=== PATIENT | male | born 1975 | race Caucasian/White ===

== ENCOUNTER 2017-09-16 01:04 | Inpatient (IN) | payer MEDICAID ==
[2017-09-16] VITALS (10 sets, daily range): BP systolic 99–134; BP diastolic 58–77; PULSE 55–75; RESP 16–20; TEMP 95.9–98; O2SAT 95–100
[~2017-09-16] VITALS: Ht 175.3 cm; Wt 85.9 kg
[2017-09-16] MEDS ORDERED: SODIUM CHLOR 0.9% 1000 ML INJ 1,000 ML IV SCH (03:46)
--- NOTE | 2017-09-16 03:50 | PD ---
HPI Chief Complaint: Abdominal Pain Time Seen by Provider: 03:42 Travel History International Travel<30 days: No Contact w/Intl Traveler<30days: No Traveled to known affect area: No History of Present Illness HPI 41-year-old male here for evaluation of abdominal pain. Patient reports that he was at [facility] earlier today and had a CT of his abdomen that showed an abscess. She reports abdominal pain for the last week described as sharp as well as multiple episodes of loose/nonbloody diarrhea. He denies fevers or chills. He feels nauseous but has not vomited. No rectal pain. No urinary symptoms. Drinks alcohol daily. Denies trauma. Denies IVDU. PFS Past Medical History Medical History: Denies Significant Hx Diminished Hearing: No Tetanus Vaccination: Unknown Influenza Vaccination: No Past Surgical History Surgical History: No Previous Surgery Social History Alcohol Use: No Tobacco Use: Yes (2PPD) Substance Use: No Allergies-Medications (Allergen,Severity, Reaction): Coded Allergies: No Known Allergies (Unverified , 09/16/17) Reported Meds & Prescriptions Reported Meds & Active Scripts Active No Active Prescriptions or Reported Medications Review of Systems Except as stated in HPI: all other systems reviewed are Neg Physical Exam Narrative GENERAL: Well-developed, well-nourished, comfortable, no apparent distress. SKIN: Focused skin assessment warm/dry. No rash. HEAD: Atraumatic. Normocephalic. EYES: Pupils equal and round. No scleral icterus. No injection or drainage. ENT: Mucous membranes pink and moist. NECK: Trachea midline. No JVD. CARDIOVASCULAR: Regular rate and rhythm. No murmur appreciated. RESPIRATORY: No accessory muscle use. Clear to auscultation. Breath sounds equal bilaterally. GASTROINTESTINAL: Abdomen soft, nondistended. Mild diffuse tenderness without peritoneal signs. Normal bowel sounds. No hernias. MUSCULOSKELETAL: No obvious deformities. No clubbing. No cyanosis. No edema. NEUROLOGICAL: Awake and alert. No obvious cranial nerve deficits. Motor grossly within normal limits. Normal speech. PSYCHIATRIC: Appropriate mood and affect; insight and judgment normal. Data Data Last Documented VS Vital Signs Date Time Temp Pulse Resp B/P (MAP) Pulse Ox O2 Delivery O2 Flow Rate FiO2 09/16/17 06:11 60 16 109/73 (85) 98 Room Air 09/16/17 01:06 98.0 Orders Orders Complete Blood Count With Diff (09/16/17 03:46) Comprehensive Metabolic Panel (09/16/17 03:46) Lipase (09/16/17 03:46) Prothrombin Time / Inr (Pt) (09/16/17 03:46) Act Partial Throm Time (Ptt) (09/16/17 03:46) Ct Abd/Pel W Iv Contrast(Rout) (09/16/17 03:46) Iv Access Insert/Monitor (09/16/17 03:46) Ecg Monitoring (09/16/17 03:46) Oximetry (09/16/17 03:46) Morphine Inj (Morphine Inj) (09/16/17 04:00) Ondansetron Inj (Zofran Inj) (09/16/17 04:00) Sodium Chlor 0.9% 1000 Ml Inj (Ns 1000 M (09/16/17 03:46) Sodium Chloride 0.9% Flush (Ns Flush) (09/16/17 04:00) Iohexol 350 Inj (Omnipaque 350 Inj) (09/16/17 06:31) Ciprofloxacin 400 Mg Premix (Cipro 400 M (09/16/17 07:00) Metronidazole 500 Mg Inj (Flagyl 500 Mg (09/16/17 07:00) Labs Laboratory Tests Test 09/16/17 04:10 White Blood Count 14.6 TH/MM3 Red Blood Count 4.94 MIL/MM3 Hemoglobin 15.6 GM/DL Hematocrit 46.2 % Mean Corpuscular Volume 93.5 FL Mean Corpuscular Hemoglobin 31.6 PG Mean Corpuscular Hemoglobin Concent 33.8 % Red Cell Distribution Width 13.8 % Platelet Count 257 TH/MM3 Mean Platelet Volume 6.9 FL Neutrophils (%) (Auto) 70.3 % Lymphocytes (%) (Auto) 18.5 % Monocytes (%) (Auto) 6.7 % Eosinophils (%) (Auto) 3.7 % Basophils (%) (Auto) 0.8 % Neutrophils # (Auto) 10.3 TH/MM3 Lymphocytes # (Auto) 2.7 TH/MM3 Monocytes # (Auto) 1.0 TH/MM3 Eosinophils # (Auto) 0.5 TH/MM3 Basophils # (Auto) 0.1 TH/MM3 CBC Comment DIFF FINAL Differential Comment Prothrombin Time 10.1 SEC Prothromb Time International Ratio 1.0 RATIO Activated Partial Thromboplast Time 29.2 SEC Blood Urea Nitrogen 9 MG/DL Creatinine 0.95 MG/DL Random Glucose 87 MG/DL Total Protein 7.8 GM/DL Albumin 3.5 GM/DL Calcium Level 8.8 MG/DL Alkaline Phosphatase 80 U/L Aspartate Amino Transf (AST/SGOT) 19 U/L Alanine Aminotransferase (ALT/SGPT) 25 U/L Total Bilirubin 0.3 MG/DL Sodium Level 140 MEQ/L Potassium Level 3.5 MEQ/L Chloride Level 104 MEQ/L Carbon Dioxide Level 29.9 MEQ/L Anion Gap 6 MEQ/L Estimat Glomerular Filtration Rate 87 ML/MIN Lipase 97 U/L [facility] Medical Decision Making Medical Screen Exam Complete: Yes Emergency Medical Condition: Yes Differential Diagnosis Diverticulitis, diverticular abscess, appendicitis, Narrative Course Initial vital signs show heart rate 75, blood pressure 1:30/77, pulse ox 97% on room air, oral temp of 98F. CBC: WBC 14.6, hemoglobin 15.6, hematocrit 46.2, platelets 257, neutrophils 70%. CMP is unremarkable. CT abdomen pelvis: CONCLUSION: Findings characteristic of acute diverticulitis involving the sigmoid colon. There is wall thickening and inflammatory change as well as a small low density fluid collection. There are several tiny gas bubbles in this region this may represent early abscess formation. Patient will be started on IV Cipro and Flagyl be admitted for further treatment and evaluation. He was made aware of all findings. He is amenable to this plan. Case discussed with hospitalist Dr. Munoz who will admit the patient to the hospitalist service. Diagnosis Primary Impression: Sigmoid diverticulitis Admitting Information Admitting Physician Requests: Admit Scripts No Active Prescriptions or Reported Meds Tay Sosa MD Sep 16, 2017 03:50
[2017-09-16] MEDS ORDERED: SODIUM CHLORIDE 0.9% FLUSH 10 ML FLUSH IV FLUSH PRN (04:00)
[2017-09-16] MEDS ORDERED: ONDANSETRON HCL 4 MG/2 ML VIAL IVP ONE (04:00)
[2017-09-16] MEDS ORDERED: MORPHINE SULFATE 4 MG/ML INJ IV PUSH ONE (04:00)
[2017-09-16 04:40] LABS: AUTOMATED NEUTROPHIL # 10.3 TH/MM3 (1.8-7.7); BASOPHIL # 0.1 TH/MM3 (0-0.2); BASOPHIL % 0.8 % (0.0-2.0); EOSINOPHIL # 0.5 TH/MM3 (0-0.4); EOSINOPHIL % 3.7 % (0.0-4.0); HEMATOCRIT 46.2 % (39.0-51.0); HEMO FLAGS DIFF FINAL; LYMPH % 18.5 % (9.0-44.0); LYMPHOCYTE # 2.7 TH/MM3 (1.0-4.8); MEAN CELL VOLUME 93.5 FL (80.0-100.0); MEAN CORPUSCULAR HEMOGLOBIN 31.6 PG (27.0-34.0); MEAN CORPUSCULAR HGB CONC 33.8 % (32.0-36.0); MONO % 6.7 % (0.0-8.0); NEUT % 70.3 % (16.0-70.0); PLATELET COUNT 257 TH/MM3 (150-450); RED BLOOD COUNT 4.94 MIL/MM3 (4.50-5.90); RED CELL DISTRIBUTION WIDTH 13.8 % (11.6-17.2); WHITE BLOOD COUNT 14.6 TH/MM3 (4.0-11.0)
[2017-09-16 04:52] LABS: APTT (PATIENT) 29.2 SEC (24.3-30.1); PROTHROMBIN TIME - PATIENT 10.1 SEC (9.8-11.6)
[2017-09-16 04:58] LABS: ALT (GPT) 25 U/L (12-78); ANION GAP 6 MEQ/L (5-15); AST (GOT) 19 U/L (15-37); BICARBONATE 29.9 MEQ/L (21.0-32.0); BLOOD UREA NITROGEN 9 MG/DL (7-18); CHLORIDE 104 MEQ/L (98-107); GLOMERULAR FILTRATION RATE 87 ML/MIN (>89); POTASSIUM 3.5 MEQ/L (3.5-5.1); SODIUM (NA) 140 MEQ/L (136-145)
[2017-09-16 05:00] LABS: ALKALINE PHOSPHATASE 80 U/L (45-117); TOTAL BILIRUBIN ADULT 0.3 MG/DL (0.2-1.0)
[2017-09-16] MEDS ORDERED: IOHEXOL 350 MG/ML 10 ML VIAL (for RAD DIAG) IVCONTRAST ONE (06:31)
--- NOTE | 2017-09-16 06:49 | RADRPT ---
EXAM DATE/TIME: 09/16/2017 05:58 [place] COMPARISON: No previous studies available for comparison. INDICATIONS : Abdomen pain. IV CONTRAST: 100 cc Omnipaque 350 (iohexol) IV ORAL CONTRAST: No oral contrast ingested. RADIATION DOSE: 10.14 CTDIvol (mGy) MEDICAL HISTORY : None SURGICAL HISTORY : None. ENCOUNTER: Initial ACUITY: 1 day PAIN SCALE: 5/10 LOCATION: Bilateral abdomen. TECHNIQUE: Volumetric scanning of the abdomen and pelvis was performed. Using automated exposure control and ad justment of the mA and/or kV according to patient size, radiation dose was kept as low as reasonably achievable to obtain optimal diagnostic quality images. DICOM format image data is available electro nically for review and comparison. FINDINGS: LOWER LUNGS: The visualized lower lungs are clear. LIVER: Homogeneous density without lesion. There is no dilation of the biliary tree. No calcified gallston es. There is mild fatty infiltration of the liver. SPLEEN: Normal size without lesion. PANCREAS: Within normal limits. KIDNEYS: Normal in size and shape. There is no mass, stone or hydronephrosis. ADRENAL GLANDS: Within normal limits. VASCULAR: There is no aortic aneurysm. BOWEL/MESENTERY: Does sigmoid colon is abnormal with inflammatory change and wall thickening. There is an ill-defined low attenuation fluid collection measuring up to 1.9 x 1.7 cm. This is best seen on axial image #50 a nd contains several small gas bubbles.. There are scattered diverticuli. There is no free air. The jed wel gas pattern is nonobstructive. ABDOMINAL WALL: Within normal limits. RETROPERITONEUM: There is no lymphadenopathy. BLADDER: No wall thickening or mass. REPRODUCTIVE: Within normal limits. INGUINAL: There is no lymphadenopathy or hernia. MUSCULOSKELETAL: Within normal limits for patient age. CONCLUSION: Findings characteristic of acute diverticulitis involving the sigmoid colon. There is wall thickening and inflammatory change as well as a small low density fluid collection. There are several tiny gas bubbles in this region this may represent early abscess formation. Dionte Peguero MD on September 16, 2017 at 6:43 Board Certified Radiologist. This report was verified electronically.
[2017-09-16] MEDS ORDERED: CIPROFLOXACIN 400 MG PREMIX 200 ML IV ONE (07:00)
[2017-09-16] MEDS ORDERED: metroNIDAZOLE 500 MG INJ 100 ML IV ONE (07:00)
[2017-09-16] MEDS ORDERED: NALOXONE HCL 0.4 MG/ML AMP IV PUSH PRN (07:15)
[2017-09-16] MEDS: SODIUM CHLORIDE 0.9% FLUSH 10 ML FLUSH IV FLUSH SCH ×2 (09:00→20:55)
--- NOTE | 2017-09-16 09:08 | HHI.HP ---
HPI Service [facility] Hospitalists Primary Care Physician No Primary Care Physician Admission Diagnosis sigmoid diverticulitis with possible abscess Diagnoses: Chief Complaint: abdominal pain and diarrhea Travel History International Travel<30 Days: No Contact w/Intl Traveler <30 Da: No Traveled to Known Affected Are: No History of Present Illness This is a 41-year-old male with no past medical history of present with abdominal pain and diarrhea. Patient stated about a week ago he had these symptoms. He stated that there were constant but worsened over the week so he went to the emergency department in [facility]. Patient stated that he was told he had an abscess in his colon, that he may have kidney cancer and that he will need surgery so he was very upset how this was presented so left AMA. Patient then presented to the emergency department here [facility] [place] in [place] with the same complaints. Patient denies any nausea or vomiting or any fevers. He denies any family history of any cancer. All other review of system reviewed and negative. Past Family Social History Past Medical History Denies any past medical history. Past Surgical History Left rotator cuff repair. Reported Medications Reported Meds & Active Scripts Active No Active Prescriptions or Reported Medications Allergies: Coded Allergies: No Known Allergies (Unverified , 09/16/17) Active Ordered Medications Current Medications Morphine Sulfate (Morphine Inj) 4 mg ONCE ONCE IV PUSH Last administered on 04:15; Start 09/16/17 at 04:00; Stop 09/16/17 at 04:02; Status DC Ondansetron HCl (Zofran Inj) 4 mg ONCE ONCE IVP Last administered on 04:14; Start 09/16/17 at 04:00; Stop 09/16/17 at 04:02; Status DC Sodium Chloride 1,000 ml @ 125 mls/hr Q8H IV Last administered on 09/16/17 04 :15; Start 09/16/17 at 03:46; Stop 09/16/17 at 11:45 Sodium Chloride (NS Flush) 2 ml UNSCH PRN IV FLUSH FLUSH AFTER USING IV ACCESS ; Start 09/16/17 at 04:00; Stop 09/16/17 at 07:23; Status DC Iohexol (Omnipaque 350 Inj) 100 ml STK-MED ONCE IVCONTRAST Last administered on 09/16/17 06:31; Start 09/16/17 at 06:31; Stop 09/16/17 at 06:32; Status DC Ciprofloxacin/ Dextrose 200 ml @ 200 mls/hr ONCE ONCE IV Last administered on 09/16/17 07:00; Start 09/16/17 at 07:00; Stop 09/16/17 at 07:59; Status DC Metronidazole 100 ml @ 100 mls/hr ONCE ONCE IV ; Start 09/16/17 at 07:00; Stop 09/16/17 at 07:59; Status DC Sodium Chloride (NS Flush) 2 ml UNSCH PRN IV FLUSH FLUSH AFTER USING IV ACCESS ; Start 09/16/17 at 07:15 Sodium Chloride (NS Flush) 2 ml BID IV FLUSH ; Start 09/16/17 at 09:00 Naloxone HCl (Narcan Inj) 0.4 mg UNSCH PRN IV PUSH SEE LABEL COMMENTS; Start 09/16/17 at 07:15 Family History Family history reviewed. Patient stated that this is unknown to him. Social History Smokes tobacco 2 packs per day for about 10 years. Drinks about 6 packs of beer a day unsure if he gets alcohol withdrawals. Patient stated that he was sober for 2 years and relapsed 6 months ago. Denies any illicit drug use. Physical Exam Vital Signs Vital Signs Date Time Temp Pulse Resp B/P (MAP) Pulse Ox O2 Delivery O2 Flow Rate FiO2 09/16/17 06:11 60 16 109/73 (85) 98 Room Air 09/16/17 05:03 16 09/16/17 04:36 98 Room Air 09/16/17 03:18 62 18 119/69 (86) 100 Room Air 09/16/17 01:06 98.0 75 16 134/77 (96) 97 Physical Exam GENERAL: This is a well-nourished, well-developed patient, in no apparent distress. SKIN: No rashes, ecchymoses or lesions. Cool and dry. HEAD: Atraumatic. Normocephalic. No temporal or scalp tenderness. EYES: Pupils equal round and reactive. Extraocular motions intact. No scleral icterus. No injection or drainage. ENT: Nose without bleeding, purulent drainage or septal hematoma. Throat without erythema, tonsillar hypertrophy or exudate. Uvula midline. Airway patent. NECK: Trachea midline. No JVD or lymphadenopathy. Supple, nontender, no meningeal signs. CARDIOVASCULAR: Regular rate and rhythm without murmurs, gallops, or rubs. RESPIRATORY: Clear to auscultation. Breath sounds equal bilaterally. No wheezes , rales, or rhonchi. GASTROINTESTINAL: Abdomen soft, nondistended. + TTP in the lower mid and left side No hepato-splenomegaly, or palpable masses. No guarding. MUSCULOSKELETAL: Extremities without clubbing, cyanosis, or edema. No joint tenderness, effusion, or edema noted. No calf tenderness. Negative Homans sign bilaterally. NEUROLOGICAL: Awake and alert. Cranial nerves II through XII intact. Motor and sensory grossly within normal limits. Five out of 5 muscle strength in all muscle groups. Normal speech. Laboratory Laboratory Tests Test 09/16/17 04:10 White Blood Count 14.6 Red Blood Count 4.94 Hemoglobin 15.6 Hematocrit 46.2 Mean Corpuscular Volume 93.5 Mean Corpuscular Hemoglobin 31.6 Mean Corpuscular Hemoglobin Concent 33.8 Red Cell Distribution Width 13.8 Platelet Count 257 Mean Platelet Volume 6.9 Neutrophils (%) (Auto) 70.3 Lymphocytes (%) (Auto) 18.5 Monocytes (%) (Auto) 6.7 Eosinophils (%) (Auto) 3.7 Basophils (%) (Auto) 0.8 Neutrophils # (Auto) 10.3 Lymphocytes # (Auto) 2.7 Monocytes # (Auto) 1.0 Eosinophils # (Auto) 0.5 Basophils # (Auto) 0.1 CBC Comment DIFF FINAL Differential Comment Prothrombin Time 10.1 Prothromb Time International Ratio 1.0 Activated Partial Thromboplast Time 29.2 Blood Urea Nitrogen 9 Creatinine 0.95 Random Glucose 87 Total Protein 7.8 Albumin 3.5 Calcium Level 8.8 Alkaline Phosphatase 80 Aspartate Amino Transf (AST/SGOT) 19 Alanine Aminotransferase (ALT/SGPT) 25 Total Bilirubin 0.3 Sodium Level 140 Potassium Level 3.5 Chloride Level 104 Carbon Dioxide Level 29.9 Anion Gap 6 Estimat Glomerular Filtration Rate 87 Lipase 97 Result Diagram: 09/16/1740909/16/17409 Imaging Last Impressions Abdomen/Pelvis CT 09/16/17 0346 Signed Impressions: Service Date/Time: Saturday, September 16, 2017 05:58 - CONCLUSION: Findings characteristic of acute diverticulitis involving the sigmoid colon. There is wall thickening and inflammatory change as well as a small low density fluid collection. There are several tiny gas bubbles in this region this may represent early abscess formation. MD Chacorta Arnett VTE Risk Assessment Caprini VTE Risk Assessment: No/Low Risk (score <= 1) Caprini Risk Assessment Model Point Value = 1 Point Value = 2 Point Value = 3 Point Value = 5 Age 41-60 Minor surgery BMI > 25 kg/m2 Swollen legs Varicose veins or History of unexplained or recurrent spontaneous Oral contraceptives or hormone replacement Sepsis (< 1 month) Serious lung disease, including pneumonia (< 1 month) Abnormal pulmonary function Acute myocardial infarction Congestive heart failure (< 1 month) History of inflammatory bowel disease Medical patient at bed rest Age 61-74 Arthroscopic surgery Major open surgery (> 45 min) Laparoscopic surgery (> 45 min) Malignancy Confined to bed (> 72 hours) Immobilizing plaster cast Central venous access Age >= 75 History of VTE Family history of VTE Factor V Leiden Prothrombin [id number] Lupus anticoagulant Anticardiolipin antibodies Elevated serum homocysteine Heparin-induced thrombocytopenia Other congenital or acquired thrombophilia Stroke (< 1 month) Elective arthroplasty Hip, pelvis, or leg fracture Acute spinal cord injury (< 1 month) Prophylaxis Regimen Total Risk Factor Score Risk Level Prophylaxis Regimen 0-1 Low Early ambulation 2 Moderate Order ONE of the following: *Sequential Compression Device (SCD) *Heparin 5000 units SQ BID 3-4 Higher Order ONE of the following medications: *Heparin 5000 units SQ TID *Enoxaparin/Lovenox 40 mg SQ daily (WT < 150 kg, CrCl > 30 mL/min) *Enoxaparin/Lovenox 30 mg SQ daily (WT < 150 kg, CrCl > 10-29 mL/min) *Enoxaparin/Lovenox 30 mg SQ BID (WT < 150 kg, CrCl > 30 mL/min) AND/OR *Sequential Compression Device (SCD) 5 or more Highest Order ONE of the following medications: *Heparin 5000 units SQ TID (Preferred with Epidurals) *Enoxaparin/Lovenox 40 mg SQ daily (WT < 150 kg, CrCl > 30 mL/min) *Enoxaparin/Lovenox 30 mg SQ daily (WT < 150 kg, CrCl > 10-29 mL/min) *Enoxaparin/Lovenox 30 mg SQ BID (WT < 150 kg, CrCl > 30 mL/min) AND *Sequential Compression Device (SCD) Assessment and Plan Assessment and Plan 41-year-old male with history of tobacco dependence who presented with abdominal pain diarrhea Acute diverticulitis with possible early abscess formation -Found on CT scan. An acute abdomen. -Patient given a dose of Cipro and Flagyl in the emergency department. Will continue with Cipro and Flagyl. -Colorectal surgeon consulted. Pending consultation. -Continue to monitor with serial exams. -Continue with supportive care with IV fluids and pain management. Tobacco dependence -Smoking cessation. Will give a nicotine patch. Patient's in agreement. Questionable alcohol abuse -Education given. Will place on CIWA protocol. DVT prophylaxis -Low risk. -encourage ambulation. Discussed Condition With patient Physician Certification 2 Midnight Certification Type: Admission for Inpatient Services Order for Inpatient Services The services are ordered in accordance with Medicare regulations or non- Medicare payer requirements, as applicable. In the case of services not specified as inpatient-only, they are appropriately provided as inpatient services in accordance with the 2-midnight benchmark. Estimated LOS (days): 5 5 days is the estimated time the patient will need to remain in the hospital, assuming treatment plan goals are met and no additional complications. Post-Hospital Plan: Mary Ellen Brice MD Sep 16, 2017 09:07
[2017-09-16] MEDS ORDERED: LORazepam 2 MG TAB PO PRN (09:15)
[2017-09-16] MEDS ORDERED: LORazepam 2 MG/ML VIAL IV PUSH PRN ×4 (09:15)
[2017-09-16] MEDS ORDERED: FLUMAZENIL 0.5 MG/5 ML VIAL IV PUSH PRN (09:15)
[2017-09-16] MEDS: NICOTINE 21 MG/24 HR PATCH T-DERMAL SCH (09:45)
[2017-09-16] MEDS: MORPHINE SULFATE 4 MG/ML INJ IV PUSH PRN ×4 (09:49→20:52)
[2017-09-16] MEDS: SODIUM CHLORIDE 0.9% FLUSH 10 ML FLUSH IV FLUSH PRN ×2 (13:52→16:57)
[2017-09-16] MEDS: KETOROLAC TROMETHAMINE 30 MG/ML (IVP) VIAL IV PUSH PRN (15:51)
[2017-09-16] MEDS ORDERED: MORPHINE SULFATE 4 MG/ML INJ IV PUSH PRN (16:30)
[2017-09-16] MEDS: metroNIDAZOLE 500 MG INJ 100 ML IV SCH (16:57)
[2017-09-16] MEDS: CIPROFLOXACIN 400 MG PREMIX 200 ML IV SCH (20:55)
[2017-09-16] MEDS: REMOVE OLD PATCH T-DERMAL SCH (21:08)
[2017-09-17] VITALS: BP 106/75; PULSE 54; PULSE 61; RESP 18; TEMP 96.1; O2SAT 98
[2017-09-17] MEDS: metroNIDAZOLE 500 MG INJ 100 ML IV SCH ×4 (01:25→23:27)
[2017-09-17] MEDS: MORPHINE SULFATE 4 MG/ML INJ IV PUSH PRN ×4 (01:34→12:28)
[2017-09-17] MEDS: KETOROLAC TROMETHAMINE 30 MG/ML (IVP) VIAL IV PUSH PRN ×4 (03:10→23:26)
[2017-09-17 04:00] VITALS: BP 115/73; PULSE 54; RESP 18; TEMP 96; O2SAT 100
[2017-09-17] MEDS: LORazepam 1 MG TAB PO PRN ×2 (06:13→16:47)
[2017-09-17] MEDS: CIPROFLOXACIN 400 MG PREMIX 200 ML IV SCH ×2 (07:42→19:43)
[2017-09-17] MEDS: SODIUM CHLORIDE 0.9% FLUSH 10 ML FLUSH IV FLUSH SCH ×2 (07:45→19:44)
[2017-09-17] MEDS: NICOTINE 21 MG/24 HR PATCH T-DERMAL SCH (07:46)
[2017-09-17 08:00] VITALS: BP 114/66; PULSE 52; PULSE 59; RESP 19; TEMP 95.9; O2SAT 99
[2017-09-17] MEDS: SODIUM CHLORIDE 0.9% FLUSH 10 ML FLUSH IV FLUSH PRN (08:49)
[2017-09-17 11:20] LABS: AUTOMATED NEUTROPHIL # 5.7 TH/MM3 (1.8-7.7); BASOPHIL # 0.1 TH/MM3 (0-0.2); EOSINOPHIL # 0.5 TH/MM3 (0-0.4); EOSINOPHIL % 5.4 % (0.0-4.0); HEMATOCRIT 41.7 % (39.0-51.0); HEMO FLAGS DIFF FINAL; LYMPH % 23.9 % (9.0-44.0); LYMPHOCYTE # 2.2 TH/MM3 (1.0-4.8); MEAN CORPUSCULAR HEMOGLOBIN 31.2 PG (27.0-34.0); MEAN CORPUSCULAR HGB CONC 33.2 % (32.0-36.0); MONO % 8.6 % (0.0-8.0); NEUT % 61.1 % (16.0-70.0); PLATELET COUNT 236 TH/MM3 (150-450); RED BLOOD COUNT 4.44 MIL/MM3 (4.50-5.90); RED CELL DISTRIBUTION WIDTH 13.6 % (11.6-17.2); WHITE BLOOD COUNT 9.3 TH/MM3 (4.0-11.0)
[2017-09-17 11:59] LABS: BICARBONATE 27.3 MEQ/L (21.0-32.0); POTASSIUM 3.7 MEQ/L (3.5-5.1)
[2017-09-17 12:00] VITALS: BP 116/70; PULSE 63; RESP 17; TEMP 96.3; O2SAT 96
[2017-09-17] MEDS ORDERED: ACETAMINOPHEN/HYDROcodone 325 MG/5 MG TAB PO PRN (12:45)
--- NOTE | 2017-09-17 13:10 | HHI.PR ---
Subjective Remarks Follow up Visit for sigmoid diverticulitis, abdominal pain. Patient seen and examined today. Reports he is doing well, pain is managed well by pain medication. Tolerates clear liquid diet. Patient states he wants to eat more. Reports has not moved bowels since admission. Denies pain and discomfort. Denies SOB/ dyspnea. Denies chest pain, palpitations, headaches, dizziness. Denies fevers, chills, n/v/d. Denies dysuria. Objective Vitals Vital Signs Date Time Temp Pulse Resp B/P (MAP) Pulse Ox O2 Delivery O2 Flow Rate FiO2 09/17/17 12:33 18 09/17/17 12:00 96.3 63 17 116/70 (85) 96 09/17/17 11:01 18 09/17/17 08:00 95.9 59 19 114/66 (82) 99 09/17/17 08:00 52 09/17/17 04:00 96.0 54 18 115/73 (87) 100 09/17/17 00:00 96.1 54 18 106/75 (85) 98 09/17/17 00:00 61 09/16/17 20:26 55 09/16/17 20:00 97.4 56 18 99/60 (73) 99 09/16/17 17:00 56 09/16/17 16:00 97.4 56 16 110/64 (79) 95 09/16/17 14:16 95.9 59 17 116/71 (86) 97 09/16/17 14:05 I/O 09/16/17 09/16/17 09/16/17 09/17/17 09/17/17 09/17/17 07:00 15:00 23:00 07:00 15:00 23:00 Intake Total 300 ml 320 ml 580 ml Balance 300 ml 320 ml 580 ml Intake Oral 120 ml 480 ml IV Total 300 ml 200 ml 100 ml # Voids 4 # Bowel Movements 1 Result Diagram: 09/17/17 0931 09/17/17 0931 Imaging Last Impressions Abdomen/Pelvis CT 09/16/17 0346 Signed Impressions: Service Date/Time: Saturday, September 16, 2017 05:58 - CONCLUSION: Findings characteristic of acute diverticulitis involving the sigmoid colon. There is wall thickening and inflammatory change as well as a small low density fluid collection. There are several tiny gas bubbles in this region this may represent early abscess formation. Dionte Peguero MD Objective Remarks GENERAL: This is a well-nourished, well-developed patient, in no apparent distress. SKIN: Warm and dry HEENT: Normocephalic. Pupils equal round and reactive. Nose without bleeding. Airway patent. NECK: Trachea midline. No JVD. Supple. CARDIOVASCULAR: Regular rate and rhythm without murmurs, gallops, or rubs. RESPIRATORY: Clear to auscultation. Breath sounds equal bilaterally. No wheezes , rales, or rhonchi. GASTROINTESTINAL: Abdomen soft, nondistended. Bowel Sounds hypoactive. Nontender to palpation. MUSCULOSKELETAL: Extremities without clubbing, cyanosis, or edema. NEUROLOGICAL: Awake and alert. Oriented to time, place, person. No focal neuro deficit. Moves all extremities. Normal speech. A/P Problem List: (1) Sigmoid diverticulitis ICD Code: K57.32 - Diverticulitis of large intestine without perforation or abscess without bleeding Status: Acute Assessment and Plan Patient is a 41-year-old male with no past medical history came in to the hospital with complaints of abdominal pain and diarrhea. Sigmoid diverticulitis, acute on chronic - CT of the abdomen and pelvis showed findings characteristic of acute diverticulitis involving the sigmoid colon. There is wall thickening and inflammatory change as well as small low density fluid collection. There are several tiny gas bubbles in this region dyspnea represent early abscess formation. - Tolerating clear liquid diet now. Denies abdominal pain on exam. Non tender to palpation. - Continue on Cipro, Flagyl - Colored rectal surgeon has been consulted - Pain management with IV morphine, switch over to by mouth Marengo's as the patient is not tolerating clears. - If colorectal surgeon wants to see the patient is an outpatient for colonoscopy, we'll discharge the patient with Marengo's, Cipro by mouth, Flagyl by mouth. Tobacco dependence - Smoking cessation. Will give a nicotine patch. Patient's in agreement. Questionable alcohol abuse - Education given. Will place on CIWA protocol. DVT prop SCDs, times Discharge Planning Plan to DC home when cleared by colorectal surgery vs GI vs Gen surgery Ava Ko Sep 17, 2017 13:10
[2017-09-17] MEDS: ACETAMINOPHEN/HYDROcodone 325 MG/10 MG TAB PO PRN ×2 (15:16→19:57)
[2017-09-17 16:00] VITALS: BP 102/62; PULSE 59; RESP 19; TEMP 97.4; O2SAT 97
[2017-09-17] MEDS: ONDANSETRON HCL 4 MG/2 ML VIAL IV PUSH PRN (17:34)
--- NOTE | 2017-09-17 18:06 | MB ---
cc: CASSIDY GARCIA M.D. DATE OF CONSULTATION: 09/17/2017. REASON FOR CONSULTATION: Complicated diverticulitis. HISTORY OF PRESENT ILLNESS: The patient is a 41-year-old male with no past medical history of diverticular disease who presented with abdominal pain and diarrhea for about a week. The patient's pain worsened and he was seen at [facility]. He was told that he had an abscess and would require a colostomy and he checked himself out and came to [place]. The patient was admitted, made n.p.o., placed on IV fluids and antibiotics. Initially WBCs were 14.6, they are down to 9.3. He has not had any fevers. Imaging demonstrated a sigmoid colon with inflammatory change and wall thickening with a low attenuation fluid collection measuring 1.9 x 1.7 cm with several small gas bubbles. He has been tolerating clear liquids with no problems. PAST MEDICAL HISTORY: Past medical history significant for left rotator cuff repair. MEDICATIONS: He has no active prescriptions or medications. ALLERGIES: NO KNOWN ALLERGIES. SOCIAL HISTORY: He smokes two packs of cigarettes per day and drinks five to eight beers a day and an occasional shot as well. PHYSICAL EXAMINATION: GENERAL: The physical exam reveals a male who is in no acute distress. VITAL SIGNS: Blood pressure 116/70, pulse 63, respirations 17, 96% saturation on room air, temperature 96.3. HEAD, EYES, EARS, NOSE, THROAT: The sclerae are anicteric. Pupils are reactive. NECK: The neck is supple. Throat is clear. CHEST: Clear to auscultation without wheezes or rhonchi. CARDIAC: Regular rate and rhythm. ABDOMEN: Soft with some suprapubic tenderness. There is no left lower quadrant tenderness. There is no guarding or rebound. There are no peritoneal signs. EXTREMITIES: Pulses are intact. NEUROLOGIC: Nonfocal. LABORATORY STUDIES: WBCs are normal as noted above with hemoglobin of 13.8 and platelets 236,000. BUN and creatinine are normal at 7 and 0.88. Potassium is normal at 3.7. IMAGING STUDIES: Imaging is as noted above. ASSESSMENT: Complicated diverticulitis with contained perforation and small abscess. PLAN: 1. Will advance diet. 2. Have discussed options with the patient. 3. If he tolerates diet advancement, would let acute inflammatory process subside, and attempt to perform surgery in a single stage procedure with bowel prep. If he fails diet advancement, he will require surgical procedure while he is here, although if we are able to perform gentle bowel prep, we may still be able to perform single stage procedure. He realizes he may still require a colostomy and/or a diverting ileostomy. He is agreeable to the above plan. I will advance him to a full liquid diet tonight. Can advance him to a low residue diet tomorrow if he tolerates the diet tonight and has no fevers or problems. Thank you, Dr. Baker, for asking us to see this individual. We will follow him with you. MD BONG Montes/JCC /4:45 PM /5:49 PM
[2017-09-17] MEDS: REMOVE OLD PATCH T-DERMAL SCH (19:45)
[2017-09-17 20:00] VITALS: BP 111/76; PULSE 52; PULSE 58; RESP 18; TEMP 96.5; O2SAT 99
[2017-09-18] VITALS: BP 116/76; PULSE 61; RESP 18; TEMP 97.1; O2SAT 98
[2017-09-18] MEDS: ONDANSETRON HCL 4 MG/2 ML VIAL IV PUSH PRN (00:24)
[2017-09-18] MEDS: ACETAMINOPHEN/HYDROcodone 325 MG/10 MG TAB PO PRN ×6 (00:25→21:18)
[2017-09-18 04:00] VITALS: BP 118/74; PULSE 54; RESP 18; TEMP 96.1; O2SAT 96
[2017-09-18] MEDS: KETOROLAC TROMETHAMINE 30 MG/ML (IVP) VIAL IV PUSH PRN ×4 (06:07→18:10)
[2017-09-18 08:00] VITALS: BP 109/64; PULSE 66; RESP 16; TEMP 97.5; O2SAT 96
[2017-09-18 08:07] LABS: HEMATOCRIT 40.5 % (39.0-51.0); MEAN CELL VOLUME 93.3 FL (80.0-100.0); MEAN CORPUSCULAR HEMOGLOBIN 32.1 PG (27.0-34.0); MEAN CORPUSCULAR HGB CONC 34.5 % (32.0-36.0); PLATELET COUNT 233 TH/MM3 (150-450); RED BLOOD COUNT 4.34 MIL/MM3 (4.50-5.90); RED CELL DISTRIBUTION WIDTH 13.5 % (11.6-17.2); REVIEW FLAG FINAL; WHITE BLOOD COUNT 9.3 TH/MM3 (4.0-11.0)
[2017-09-18] MEDS: NICOTINE 21 MG/24 HR PATCH T-DERMAL SCH (08:12)
[2017-09-18] MEDS: CIPROFLOXACIN 400 MG PREMIX 200 ML IV SCH (08:13)
[2017-09-18] MEDS: SODIUM CHLORIDE 0.9% FLUSH 10 ML FLUSH IV FLUSH SCH ×2 (08:14→21:04)
[2017-09-18 08:29] LABS: BICARBONATE 28.4 MEQ/L (21.0-32.0); POTASSIUM 3.6 MEQ/L (3.5-5.1)
[2017-09-18] MEDS: metroNIDAZOLE 500 MG INJ 100 ML IV SCH (09:00)
[2017-09-18] MEDS: LORazepam 1 MG TAB PO PRN (09:03)
--- NOTE | 2017-09-18 09:19 | HHI.PR ---
Subjective Remarks Follow up Visit for sigmoid diverticulitis, abdominal pain. Patient seen and examined today. Reports 1 and vomiting after changing to full liquid diet. She associated it with the taking tomato soup. This morning's breakfast and full liquid he is able to tolerate. Discuss possible advancement to low residual diet as per surgery. Discuss continuation of antibiotics and even when he is discharged. Denies pain and discomfort. Denies SOB/ dyspnea. Denies chest pain, palpitations, headaches, dizziness. Denies fevers, chills, n/ v/d. Denies dysuria. Objective Vitals Vital Signs Date Time Temp Pulse Resp B/P (MAP) Pulse Ox O2 Delivery O2 Flow Rate FiO2 09/18/17 04:00 96.1 54 18 118/74 (89) 96 09/18/17 00:00 97.1 61 18 116/76 (89) 98 09/17/17 20:00 52 09/17/17 20:00 96.5 58 18 111/76 (88) 99 09/17/17 17:48 18 09/17/17 16:16 18 09/17/17 16:00 97.4 59 19 102/62 (75) 97 09/17/17 12:33 18 09/17/17 12:00 96.3 63 17 116/70 (85) 96 I/O 09/17/17 09/17/17 09/17/17 09/18/17 09/18/17 09/18/17 07:00 15:00 23:00 07:00 15:00 23:00 Intake Total 580 ml 460 ml 720 ml Output Total 1600 ml Balance 580 ml 460 ml -880 ml Intake Oral 480 ml 460 ml 720 ml IV Total 100 ml Output Urine Total 1600 ml # Voids 4 5 1 # Bowel Movements 1 0 0 Result Diagram: 09/18/17 0731 09/18/17 0731 Imaging Last Impressions Abdomen/Pelvis CT 09/16/17 0346 Signed Impressions: Service Date/Time: Saturday, September 16, 2017 05:58 - CONCLUSION: Findings characteristic of acute diverticulitis involving the sigmoid colon. There is wall thickening and inflammatory change as well as a small low density fluid collection. There are several tiny gas bubbles in this region this may represent early abscess formation. Dionte Peguero MD Objective Remarks GENERAL: This is a well-nourished, well-developed patient, in no apparent distress. SKIN: Warm and dry HEENT: Normocephalic. Pupils equal round and reactive. Nose without bleeding. Airway patent. NECK: Trachea midline. No JVD. Supple. CARDIOVASCULAR: Regular rate and rhythm without murmurs, gallops, or rubs. RESPIRATORY: Clear to auscultation. Breath sounds equal bilaterally. No wheezes , rales, or rhonchi. GASTROINTESTINAL: Abdomen soft, nondistended. Bowel Sounds hypoactive. Nontender to palpation. MUSCULOSKELETAL: Extremities without clubbing, cyanosis, or edema. NEUROLOGICAL: Awake and alert. Oriented to time, place, person. No focal neuro deficit. Moves all extremities. Normal speech. A/P Problem List: (1) Sigmoid diverticulitis ICD Code: K57.32 - Diverticulitis of large intestine without perforation or abscess without bleeding Status: Acute Assessment and Plan Patient is a 41-year-old male with no past medical history came in to the hospital with complaints of abdominal pain and diarrhea. Sigmoid diverticulitis, acute on chronic - CT of the abdomen and pelvis showed findings characteristic of acute diverticulitis involving the sigmoid colon. There is wall thickening and inflammatory change as well as small low density fluid collection. There are several tiny gas bubbles in this region dyspnea represent early abscess formation. - Tolerating full liquid diet now. Denies abdominal pain on exam. Non tender to palpation. - Continue on Cipro, Flagyl - Pain management Bunn's - General surgery following patient. Recommends to continue to advance diet as tolerated. Will be discharged with Flagyl and Geoff Bunn for few days. Follow up in the outpatient setting. If able to tolerate all his diet, plan for surgery by next year. Tobacco dependence - Smoking cessation. - Declines nicotine patch. Patient states that he gets dizzy/ give some headache. Questionable alcohol abuse - Education given. on CIWA protocol. - States he hasn't been drinking for the past few years and he started drinking before he came into the hospital and that it was not a good idea for him to sweat probably he is in the hospital but he doesn't drink everyday. Patient was told in [facility] that something is wrong with his kidneys. Review of imaging does not indicate any kidney abnormality. Renal indices does not indicate [place] or insufficiency. DVT prop SCDs, ambulatory Discuss with Patient, nursing, Dr. Baker Discharge Planning Plan to DC home tomorrow if tolerating diet. Switch Cipro and Flagyl to by mouth. Ava Ko Sep 18, 2017 09:19
[2017-09-18] MEDS ORDERED: ZOFR4TAB PO (09:20)
[2017-09-18] MEDS ORDERED: CIPR-9 PO (09:22)
[2017-09-18] MEDS ORDERED: METR1TAB76 PO (09:22)
[2017-09-18 12:00] VITALS: BP 120/68; PULSE 58; RESP 16; TEMP 98; O2SAT 96
--- NOTE | 2017-09-18 13:33 | HHI.PR ---
cc: Dionte Mora MD Subjective Subjective Notes Resting in bed No issues Wants telemetry box removed---"I don't have anything wrong with me heart." Had one episode of emesis last night Objective Vitals/I&O Vital Signs Date Time Temp Pulse Resp B/P (MAP) Pulse Ox O2 Delivery O2 Flow Rate FiO2 09/18/17 12:00 98.0 58 16 120/68 (85) 96 09/16/17 09:49 Room Air Labs Laboratory Tests Test 09/18/17 07:31 White Blood Count 9.3 Red Blood Count 4.34 Hemoglobin 14.0 Hematocrit 40.5 Mean Corpuscular Volume 93.3 Mean Corpuscular Hemoglobin 32.1 Mean Corpuscular Hemoglobin Concent 34.5 Red Cell Distribution Width 13.5 Platelet Count 233 Mean Platelet Volume 7.4 Blood Urea Nitrogen 6 Creatinine 0.93 Random Glucose 94 Calcium Level 8.2 Sodium Level 139 Potassium Level 3.6 Chloride Level 105 Carbon Dioxide Level 28.4 Anion Gap 6 Estimat Glomerular Filtration Rate 89 Cardiovascular: Regular Lungs: Clear Abdomen: Non-distended, Non-tender Extremities: No edema A/P Assessment and Plan 41 year old male with acute diverticulitis -If tolerates full liquids for lunch will advance to low residue diet -Continue antibiotics -OOB and mobilize -Remove Telemetry -Will continue non operative management as long as he is able to tolerate low residue diet Attending Note - Dr. Mora No issues since this morning; pain controlled with PO pain meds Convert to PO antibiotics If he fails diet advancement, will need to keep over weekend and do bowel prep Friday for OR Friday; otherwise home tomorrow with PO antibiotics and F/U with me next week. The exam, history, and the medical decision-making described in the above note were completed with the assistance of the mid-level provider. I reviewed and agree with the findings presented. I attest that I had a [id number] encounter with the patient on the same day, and personally performed and documented my assessment and findings in the medical record. Nola Barron Sep 18, 2017 13:33 Dionte Mora MD Sep 18, 2017 17:39
[2017-09-18 16:00] VITALS: BP 122/74; PULSE 58; RESP 16; TEMP 97.4; O2SAT 94
[2017-09-18] MEDS ORDERED: ZOLPIDEM TARTRATE 10 MG TAB PO PRN (20:15)
[2017-09-18 20:30] VITALS: BP 133/75; PULSE 60; RESP 16; TEMP 97.1; O2SAT 97
[2017-09-18] MEDS: CIPROFLOXACIN 500 MG TAB PO SCH (21:03)
[2017-09-18] MEDS: metroNIDAZOLE 500 MG TAB PO SCH (21:07)
[2017-09-18] MEDS: REMOVE OLD PATCH T-DERMAL SCH (21:07)
[2017-09-19] VITALS: BP 123/80; PULSE 55; RESP 20; TEMP 97.8; O2SAT 97
[2017-09-19] MEDS: KETOROLAC TROMETHAMINE 30 MG/ML (IVP) VIAL IV PUSH PRN ×2 (00:50→09:50)
[2017-09-19] MEDS: ACETAMINOPHEN/HYDROcodone 325 MG/10 MG TAB PO PRN (02:11)
[2017-09-19] MEDS: LORazepam 1 MG TAB PO PRN (04:07)
[2017-09-19] MEDS: metroNIDAZOLE 500 MG TAB PO SCH ×2 (06:30→13:50)
[2017-09-19 08:00] VITALS: BP 97/52; PULSE 55; RESP 17; TEMP 97.5; O2SAT 94
[2017-09-19] MEDS: SODIUM CHLORIDE 0.9% FLUSH 10 ML FLUSH IV FLUSH SCH (09:00)
[2017-09-19] MEDS: CIPROFLOXACIN 500 MG TAB PO SCH (09:00)
[2017-09-19] MEDS: NICOTINE 21 MG/24 HR PATCH T-DERMAL SCH (09:00)
--- NOTE | 2017-09-19 10:47 | HHI.PR ---
cc: Dionte Mora MD Subjective Subjective Notes Resting in bed No issues Tolerating low residue diet Objective Vitals/I&O Vital Signs Date Time Temp Pulse Resp B/P (MAP) Pulse Ox O2 Delivery O2 Flow Rate FiO2 09/19/17 08:00 97.5 55 17 97/52 (67) 94 09/16/17 09:49 Room Air Cardiovascular: Regular Lungs: Clear Abdomen: Non-distended, Other (very minimal tenderness with palpation ) Extremities: No edema A/P Assessment and Plan 41 year old male with acute diverticulitis -Low residue diet -Continue antibiotics---now on PO antibiotics -OOB and mobilize -GS clear for DC after lunch -Rx for antibiotics on chart -Follow up with Dr. Mora at 8:20AM Attending Note - Dr. Mora Abdomen with minimal discomfort As above Will see next week in office to plan outpatient colon resection if possible The exam, history, and the medical decision-making described in the above note were completed with the assistance of the mid-level provider. I reviewed and agree with the findings presented. I attest that I had a [id number] encounter with the patient on the same day, and personally performed and documented my assessment and findings in the medical record. Nola Barron Sep 19, 2017 10:47 Dionte Mora MD Sep 19, 2017 14:34
[2017-09-19 12:00] VITALS: BP 114/72; PULSE 58; RESP 16; TEMP 97.8; O2SAT 97
--- NOTE | 2017-09-19 12:46 | HHI.PR ---
Subjective Remarks Follow-up acute diverticulitis 09/19/17-patient seen and examined, tolerating low residual diet without any significant abdominal pain. Objective Vitals Vital Signs Date Time Temp Pulse Resp B/P (MAP) Pulse Ox O2 Delivery O2 Flow Rate FiO2 09/19/17 12:00 97.8 58 16 114/72 (86) 97 09/19/17 08:00 97.5 55 17 97/52 (67) 94 09/19/17 00:00 97.8 55 20 123/80 (94) 97 09/18/17 20:30 97.1 60 16 133/75 (94) 97 09/18/17 16:00 97.4 58 16 122/74 (90) 94 I/O 09/18/17 09/18/17 09/18/17 09/19/17 09/19/17 09/19/17 07:00 15:00 23:00 07:00 15:00 23:00 Intake Total 720 ml 1960 ml 220 ml Output Total 1600 ml 1000 ml 300 ml Balance -880 ml 960 ml -80 ml Intake Oral 720 ml 1860 ml 220 ml IV Total 100 ml Output Urine Total 1600 ml 1000 ml 300 ml # Voids 1 3 # Bowel Movements 0 1 0 Result Diagram: 09/18/17 0731 09/18/17 0731 Imaging Last Impressions Abdomen/Pelvis CT 09/16/17 0346 Signed Impressions: Service Date/Time: Saturday, September 16, 2017 05:58 - CONCLUSION: Findings characteristic of acute diverticulitis involving the sigmoid colon. There is wall thickening and inflammatory change as well as a small low density fluid collection. There are several tiny gas bubbles in this region this may represent early abscess formation. Dionte Peguero MD Objective Remarks GENERAL: NAD SKIN: Warm and dry. HEAD: Normocephalic. EYES: No scleral icterus. No injection or drainage. NECK: Supple, trachea midline. No JVD or lymphadenopathy. CARDIOVASCULAR: Regular rate and rhythm without murmurs, gallops, or rubs. RESPIRATORY: Breath sounds equal bilaterally. No accessory muscle use. GASTROINTESTINAL: Abdomen soft, non-tender, nondistended. MUSCULOSKELETAL: No cyanosis, or edema. BACK: Nontender without obvious deformity. No CVA tenderness. Procedures none A/P Problem List: (1) Sigmoid diverticulitis ICD Code: K57.32 - Diverticulitis of large intestine without perforation or abscess without bleeding Status: Acute Assessment and Plan 41-year-old female with Sigmoid diverticulitis Tolerating low residual diet Currently on Cipro and Flagyl Appreciate input from general surgery Pain management accordingly Tobacco dependence - Smoking cessation. - Declines nicotine patch. Questionable alcohol abuse - Education given. on CIWA protocol. DVT prop SCDs, ambulatory Manjit Gracia MD Sep 19, 2017 12:46
--- NOTE | 2017-09-19 12:47 | HHI.DS ---
Discharge Summary Admission Date Sep 16, 2017 at 07:08 Discharge Date: Sep 19, 2017 Admitting Diagnosis sigmoid diverticulitis with possible abscess (1) Sigmoid diverticulitis ICD Code: K57.32 - Diverticulitis of large intestine without perforation or abscess without bleeding Status: Acute Procedures none Brief History - From Admission This is a 41-year-old male with no past medical history of present with abdominal pain and diarrhea. Patient stated about a week ago he had these symptoms. He stated that there were constant but worsened over the week so he went to the emergency department in [facility]. Patient stated that he was told he had an abscess in his colon, that he may have kidney cancer and that he will need surgery so he was very upset how this was presented so left AMA. Patient then presented to the emergency department here [place] in [place] with the same complaints. Patient denies any nausea or vomiting or any fevers. He denies any family history of any cancer. All other review of system reviewed and negative. CBC/BMP: 09/18/17 0731 09/18/17 0731 Significant Findings Laboratory Tests Test 09/17/17 09:31 09/18/17 07:31 Red Blood Count 4.44 MIL/MM3 (4.50-5.90) 4.34 MIL/MM3 (4.50-5.90) Monocytes (%) (Auto) 8.6 % (0.0-8.0) Eosinophils (%) (Auto) 5.4 % (0.0-4.0) Eosinophils # (Auto) 0.5 TH/MM3 (0-0.4) Calcium Level 8.3 MG/DL (8.5-10.1) 8.2 MG/DL (8.5-10.1) Blood Urea Nitrogen 6 MG/DL (7-18) Imaging Last Impressions Abdomen/Pelvis CT 09/16/17 0346 Signed Impressions: Service Date/Time: Saturday, September 16, 2017 05:58 - CONCLUSION: Findings characteristic of acute diverticulitis involving the sigmoid colon. There is wall thickening and inflammatory change as well as a small low density fluid collection. There are several tiny gas bubbles in this region this may represent early abscess formation. Dionte Peguero MD PE at Discharge GENERAL: NAD SKIN: Warm and dry. HEAD: Normocephalic. EYES: No scleral icterus. No injection or drainage. NECK: Supple, trachea midline. No JVD or lymphadenopathy. CARDIOVASCULAR: Regular rate and rhythm without murmurs, gallops, or rubs. RESPIRATORY: Breath sounds equal bilaterally. No accessory muscle use. GASTROINTESTINAL: Abdomen soft, non-tender, nondistended. MUSCULOSKELETAL: No cyanosis, or edema. BACK: Nontender without obvious deformity. No CVA tenderness. Hospital Course admitted secondary to sigmoid diverticulitis for which he was started on IV antibiotics with consultation to general surgery. His diet was advanced accordingly and prior to discharge, patient tolerated low residual diet. Pain management was provided accordingly. DVT and GI prophylaxis were provided. Patient's condition improved and vital remained stable prior to discharge. He Will be discharged on Cipro and Flagyl with follow-up with follow-up general surgery Pt Condition on Discharge: Stable Discharge Disposition: Discharge Home Discharge Time: <= 30 minutes Discharge Instructions DIET: Follow Instructions for: Low Residue Diet Activities you can perform: Regular-No Restrictions Follow up Referrals: PCP Follow-up - 1 Week Surgical - 09/25/17 with Dionte Mora MD Appt set for Sep 25 at 8:20AM New Medications: Ciprofloxacin (Cipro) 500 Mg Tab 500 MG PO BID for Infection for 7 Days, #14 TAB 0 Refills Metronidazole (Metronidazole) 500 Mg Tab 500 MG PO TID for Infection for 14 Days, #21 TAB 0 Refills Ondansetron (Zofran) 4 Mg Tab 4 MG PO Q8HR PRN for NAUSEA OR VOMITING for 14 Days, #14 TAB 0 Refills Hydrocodone/Acetaminophen (Hydrocodone-Acetamin 5-325 mg) 5 Mg-325 Mg Tablet 1 TAB PO Q4H PRN for PAIN SCALE 1 TO 5, #20 TAB Manjit Gracia MD Sep 19, 2017 12:47
[2017-09-19] MEDS ORDERED: HYDR-3516 PO (12:48)
== END 2017-09-19 14:24 | disposition home or self-care (01) | DRG 392 ==
LOC: NEPE 01:04 → NEDA 07:08 → N07A 13:38
PROVIDERS: ADMIT Hospitalist; ATTEND Hospitalist
DX: K57.20 Diverticulitis of large intestine with perforation and abscess without bleeding (principal); F17.210 Nicotine dependence, cigarettes, uncomplicated
CPT/HCPCS: 74177; 80048; 80053; 83690; 85025; 85027; 85610; 85730; 96361; 96374; 96375; J0744; J1885; J2270; J2405; J7030; Q9967

== ENCOUNTER 2017-10-09 00:17 | Emergency (ER) | payer MEDICAID ==
[~2017-10-09] VITALS: Ht 175.3 cm; Wt 80.0 kg
[~2017-10-09 00:17] MED LIST: CIPR-9 PO; HYDR-3516 PO; METR1TAB76 PO; ZOFR4TAB PO
[2017-10-09 00:19] VITALS: BP 135/93; PULSE 92; RESP 16; TEMP 98.9; O2SAT 98
[2017-10-09 00:47] VITALS: BP 123/77; PULSE 74; RESP 18; TEMP 98.8; O2SAT 98
[2017-10-09] MEDS ORDERED: SODIUM CHLOR 0.9% 1000 ML INJ 1,000 ML IV ONE (01:00)
[2017-10-09] MEDS ORDERED: MORPHINE SULFATE 4 MG/ML INJ IV PUSH ONE (01:15)
[2017-10-09 01:16] LABS: BASOPHIL % 0.3 % (0.0-2.0); EOSINOPHIL # 1.7 TH/MM3 (0-0.4); HEMATOCRIT 46.9 % (39.0-51.0); HEMOGLOBIN 16.2 GM/DL (13.0-17.0); LYMPH % 25.3 % (9.0-44.0); LYMPHOCYTE # 3.3 TH/MM3 (1.0-4.8); MEAN CELL VOLUME 92.3 FL (80.0-100.0); MEAN CORPUSCULAR HEMOGLOBIN 31.9 PG (27.0-34.0); MEAN CORPUSCULAR HGB CONC 34.6 % (32.0-36.0); MEAN PLATELET VOLUME 7.7 FL (7.0-11.0); MONO % 8.5 % (0.0-8.0); MONOCYTE # 1.1 TH/MM3 (0-0.9); NEUT % 52.9 % (16.0-70.0); PLATELET COUNT 294 TH/MM3 (150-450); RED BLOOD COUNT 5.08 MIL/MM3 (4.50-5.90); RED CELL DISTRIBUTION WIDTH 14.3 % (11.6-17.2); WHITE BLOOD COUNT 13.2 TH/MM3 (4.0-11.0)
--- NOTE | 2017-10-09 01:17 | PD ---
HPI Chief Complaint: Abdominal Pain Time Seen by Provider: 00:29 Travel History International Travel<30 days: No Contact w/Intl Traveler<30days: No Traveled to known affect area: No History of Present Illness HPI Patient is a 41-year-old male coming in complaining of left lower abdominal pain which has been progressively getting worse for the last few days. He says he's been vomiting and having diarrhea as well. He was in our hospital September 16 with a diverticulitis with a possible early abscess seen on CAT scan. He was discharged with Cipro Flagyl Zofran and to follow-up. He reports that he was doing well for a while but then in the last few days it's been getting worse vomiting diarrhea pain that feels similar to same pain he had when he had the diverticulitis with abscess he reports they were thinking of doing a colectomy partial and taking out the abscess drained but it he improved and they sent him home with those antibiotics as an outpatient now is returning with similar symptoms. He has not been on antibiotics for over 10 days and he took no medications to help it feel better comes to the ER he has not seen another doctor since he left the hospital PFSH Past Medical History Asthma: Yes Cancer: No Cardiovascular Problems: No Diminished Hearing: No Endocrine: No Gastrointestinal Disorders: Yes (diverticulitis) Musculoskeletal: No Neurologic: No Psychiatric: No Ulcer: Yes Tetanus Vaccination: Unknown Influenza Vaccination: No Past Surgical History Abdominal Surgery: No Cardiac Surgery: No Ear Surgery: No Endocrine Surgery: No Eye Surgery: No Genitourinary Surgery: No Gynecologic Surgery: No Oral Surgery: No Thoracic Surgery: No Other Surgery: Yes (LEFT ROTATOR CUF REPAIR ) Social History Alcohol Use: Yes (daily) Tobacco Use: Yes (2PPD) Substance Use: Yes ([facility] ) Allergies-Medications (Allergen,Severity, Reaction): Coded Allergies: No Known Allergies (Unverified , 10/09/17) Reported Meds & Prescriptions Reported Meds & Active Scripts Active Zofran (Ondansetron HCl) 4 Mg Tab 4 Mg PO Q6HR PRN Cipro (Ciprofloxacin HCl) 500 Mg Tab 500 Mg PO BID Ibuprofen 600 Mg Tab 600 Mg PO Q6H PRN Tramadol (Tramadol HCl) 50 Mg Tab 50 Mg PO Q6H PRN Review of Systems Except as stated in HPI: all other systems reviewed are Neg Gastrointestinal: Positive: Nausea, Vomiting, Diarrhea, Abdominal Pain Physical Exam Narrative GENERAL: non toxic-appearing , no sign of sepsis SKIN: Warm and dry. HEAD: Atraumatic. Normocephalic. EYES: Pupils equal and round. No scleral icterus. No injection or drainage. ENT: No nasal bleeding or discharge. Mucous membranes pink and moist. NECK: Trachea midline. No JVD. CARDIOVASCULAR: Regular rate and rhythm. RESPIRATORY: No accessory muscle use. Clear to auscultation. Breath sounds equal bilaterally. GASTROINTESTINAL: Abdomen positive tenderness periumbilical lower hypoumbilical area to the left lower quadrant he has no tenderness in the epigastrium nor in the right upper quadrant soft, nondistended. Hepatic and splenic margins not palpable. MUSCULOSKELETAL: Extremities without clubbing, cyanosis, or edema. No obvious deformities. NEUROLOGICAL: Awake and alert. No obvious cranial nerve deficits. Motor grossly within normal limits. Five out of 5 muscle strength in the arms and legs. Normal speech. PSYCHIATRIC: Appropriate mood and affect; insight and judgment normal. Data Data Last Documented VS Orders Orders Complete Blood Count With Diff (10/09/17 00:56) Comprehensive Metabolic Panel (10/09/17 00:56) Prothrombin Time / Inr (Pt) (10/09/17 00:56) Lipase (10/09/17 00:56) Urinalysis - C+S If Indicated (10/09/17 00:56) Sodium Chlor 0.9% 1000 Ml Inj (Ns 1000 M (10/09/17 01:00) Ct Abd/Pel W Iv Contrast(Rout) (10/09/17 ) Oral Contrast - Adult (10/09/17 01:21) Ondansetron Inj (Zofran Inj) (10/09/17 02:00) Pantoprazole Inj (Protonix Inj) (10/09/17 02:00) Morphine Inj (Morphine Inj) (10/09/17 02:00) Diatrizoate Liq ( Gastroview Liq) (10/09/17 02:24) Iohexol 350 Inj (Omnipaque 350 Inj) (10/09/17 05:18) Morphine Inj (Morphine Inj) (10/09/17 06:00) Labs Laboratory Tests Test 10/09/17 01:00 10/09/17 01:26 White Blood Count 13.2 TH/MM3 Red Blood Count 5.08 MIL/MM3 Hemoglobin 16.2 GM/DL Hematocrit 46.9 % Mean Corpuscular Volume 92.3 FL Mean Corpuscular Hemoglobin 31.9 PG Mean Corpuscular Hemoglobin Concent 34.6 % Red Cell Distribution Width 14.3 % Platelet Count 294 TH/MM3 Mean Platelet Volume 7.7 FL Neutrophils (%) (Auto) 52.9 % Lymphocytes (%) (Auto) 25.3 % Monocytes (%) (Auto) 8.5 % Eosinophils (%) (Auto) 13.0 % Basophils (%) (Auto) 0.3 % Neutrophils # (Auto) 7.0 TH/MM3 Lymphocytes # (Auto) 3.3 TH/MM3 Monocytes # (Auto) 1.1 TH/MM3 Eosinophils # (Auto) 1.7 TH/MM3 Basophils # (Auto) 0.0 TH/MM3 CBC Comment DIFF FINAL Differential Comment Prothrombin Time 10.8 SEC Prothromb Time International Ratio 1.1 RATIO Blood Urea Nitrogen 15 MG/DL Creatinine 1.16 MG/DL Random Glucose 86 MG/DL Total Protein 7.7 GM/DL Albumin 3.8 GM/DL Calcium Level 8.8 MG/DL Alkaline Phosphatase 81 U/L Aspartate Amino Transf (AST/SGOT) 29 U/L Alanine Aminotransferase (ALT/SGPT) 38 U/L Total Bilirubin 0.4 MG/DL Sodium Level 139 MEQ/L Potassium Level 3.7 MEQ/L Chloride Level 105 MEQ/L Carbon Dioxide Level 29.6 MEQ/L Anion Gap 4 MEQ/L Estimat Glomerular Filtration Rate 69 ML/MIN Lipase 183 U/L Urine Color YELLOW Urine Turbidity HAZY Urine pH 6.5 Urine Specific [place] 1.029 Urine Protein 30 mg/dL Urine Glucose (UA) NEG mg/dL Urine Ketones NEG mg/dL Urine Occult Blood NEG Urine Nitrite NEG Urine Bilirubin NEG Urine Urobilinogen 2.0 MG/DL Urine Leukocyte Esterase NEG Urine RBC 1 /hpf Urine WBC LESS THAN 1 /hpf Urine Squamous Epithelial Cells <1 /hpf Urine Mucus FEW /lpf Microscopic Urinalysis Comment CULT NOT INDICATED MDM Medical Decision Making Medical Screen Exam Complete: Yes Emergency Medical Condition: Yes Differential Diagnosis Differential includes colitis versus gastroenteritis versus recurrent diverticulitis with possible abscess versus appendicitis versus gallbladder disease versus gastritis versus pancreatitis Narrative Course CT Fluid morphine and possible admit. CT results show that there was a resolution of the early abscess he had on the last CAT scan and there are diverticuli without diverticulitis patient is to be discharged I will give him 5 days of Cipro twice a day and 5 pills of tramadol Diagnosis Primary Impression: Abdominal pain Qualified Codes: R10.32 - Left lower quadrant pain Patient Instructions: Abdominal Pain (ED), Diverticulosis Diet (GEN), General Instructions Scripts Ondansetron (Zofran) 4 Mg Tab 4 MG PO Q6HR Y for NAUSEA OR VOMITING, #20 TAB 0 Refills Prov: Reed Mayes MD 10/09/17 Ciprofloxacin (Cipro) 500 Mg Tab 500 MG PO BID for Infection, #10 TAB 0 Refills Prov: Reed Mayes MD 10/09/17 Ibuprofen (Ibuprofen) 600 Mg Tab 600 MG PO Q6H Y for PAIN, #10 TAB 0 Refills Prov: Reed Mayes MD 10/09/17 Tramadol (Tramadol) 50 Mg Tab 50 MG PO Q6H Y for PAIN, #6 TAB 0 Refills Prov: Reed Mayes MD 10/09/17 Disposition: 01 DISCHARGE HOME Condition: Good Reed Mayes MD Oct 09, 2017 01:17
[2017-10-09 01:26] LABS: INTERNATIONAL NORMALIZED RATIO 1.1 RATIO; PROTHROMBIN TIME - PATIENT 10.8 SEC (9.8-11.6)
[2017-10-09 01:47] LABS: ALBUMIN 3.8 GM/DL (3.4-5.0); ALKALINE PHOSPHATASE 81 U/L (45-117); ALT (GPT) 38 U/L (12-78); AST (GOT) 29 U/L (15-37); BICARBONATE 29.6 MEQ/L (21.0-32.0); BLOOD UREA NITROGEN 15 MG/DL (7-18); CALCIUM 8.8 MG/DL (8.5-10.1); CHLORIDE 105 MEQ/L (98-107); CREATININE 1.16 MG/DL (0.60-1.30); GLOMERULAR FILTRATION RATE 69 ML/MIN (>89); GLUCOSE,RANDOM 86 MG/DL (74-106); LIPASE 183 U/L (73-393); SODIUM (NA) 139 MEQ/L (136-145); TOTAL BILIRUBIN ADULT 0.4 MG/DL (0.2-1.0); TOTAL PROTEIN 7.7 GM/DL (6.4-8.2)
[2017-10-09] MEDS ORDERED: MORPHINE SULFATE 2 MG/ML INJ IV PUSH ONE ×2 (02:00→06:00)
[2017-10-09] MEDS ORDERED: ONDANSETRON HCL 4 MG/2 ML VIAL IV PUSH ONE (02:00)
[2017-10-09] MEDS ORDERED: PANTOPRAZOLE SODIUM 40 MG VIAL IV PUSH ONE (02:00)
[2017-10-09 02:16] LABS: BILIRUBIN, URINE NEG (NEG); BLOOD, URINE NEG (NEG); GLUCOSE,URINE NEG (NEG); KETONE, URINE NEG (NEG); MUCUS URINE FEW /lpf (OCC); NITRITE,URINE NEG (NEG); PH, URINE 6.5 (5.0-8.5); SQUAMOUS EPITHELIAL CELL URINE <1 /hpf (0-5); URINE COLOR YELLOW (YELLW/STRAW); URINE LEUKOCYTE ESTERASE NEG (NEG)
[2017-10-09] MEDS ORDERED: DIATRIZOATE MEGLUM/DIATRIZOATE SOD 9 ML CUP ONE (02:24)
[2017-10-09] MEDS ORDERED: IOHEXOL 350 MG/ML 10 ML VIAL (for RAD DIAG) IVCONTRAST ONE (05:18)
[2017-10-09 05:25] VITALS: BP 137/82; PULSE 59; RESP 18; O2SAT 95
--- NOTE | 2017-10-09 05:53 | RADRPT ---
EXAM DATE/TIME: 10/09/2017 04:59 [place] COMPARISON: CT ABDOMEN & PELVIS W CONTRAST, September 16, 2017, 5:58. INDICATIONS : Abdomen pain; previous abscess one month ago. IV CONTRAST: 100 cc Omnipaque 350 (iohexol) IV ORAL CONTRAST: Partial prescribed oral contrast ingested. RADIATION DOSE: 12.22 CTDIvol (mGy) MEDICAL HISTORY : Diverticulitis. Ulcer. SURGICAL HISTORY : None. ENCOUNTER: Initial ACUITY: 1 day PAIN SCALE: 10/10 LOCATION: Left lower quadrant TECHNIQUE: Volumetric scanning of the abdomen and pelvis was performed. Using automated exposure control and ad justment of the mA and/or kV according to patient size, radiation dose was kept as low as reasonably achievable to obtain optimal diagnostic quality images. DICOM format image data is available electro nically for review and comparison. FINDINGS: CT Abdomen: The liver, spleen, pancreas, left kidney, adrenals are unremarkable. Approximate 1.1 cm p artially cystic nodule is present in the right kidney probably a small complicated cyst not significa ntly changed. There is no evidence for any appreciable pathological adenopathy, free fluid, or bowel obstruction. CT pelvis: There is no evidence for mass, abscess formation, or any significant adenopathy within the pelvis. There are scattered diverticuli mainly in the sigmoid colon without definite signs of divert iculitis. Previously seen abscess is no longer seen. CONCLUSION: 1. Resolution of previously seen diverticular abscess. 2. Small complex cysts in the right kidney not significantly changed and follow up is suggested with abdominal MRI with and without contrast in one year. Gregory Casas MD on October 09, 2017 at 5:46 Board Certified Radiologist. This report was verified electronically.
[2017-10-09] MEDS ORDERED: TRAM50TA PO (06:05)
[2017-10-09] MEDS ORDERED: IBUP-232 PO (06:05)
[2017-10-09] MEDS ORDERED: CIPR-9 PO (06:06)
[2017-10-09] MEDS ORDERED: ZOFR4TAB PO (06:07)
== END 2017-10-09 06:41 | disposition home or self-care (01) ==
LOC: NEPE 00:17
DX: R10.32 Left lower quadrant pain (principal); J45.909 Unspecified asthma, uncomplicated; R11.11 Vomiting without nausea; R19.7 Diarrhea, unspecified; F12.90 Cannabis use, unspecified, uncomplicated; Z72.0 Tobacco use; Z72.89 Other problems related to lifestyle
CPT/HCPCS: 74177; 80053; 81001; 83690; 85025; 85610; 96374; 96375; 99285; C9113; J2270; J2405; J7030; Q9963; Q9967